=== PATIENT | male | born 1980 | race Caucasian/White ===

== ENCOUNTER 2017-11-11 23:21 | Emergency (ER) | payer OTHER ==
[~2017-11-11] VITALS: Ht 195.6 cm; Wt 86.2 kg
--- NOTE | 2017-11-11 23:27 | NUR ---
PT AMBULATORY TO ER BED 12. BIBSELF C/O LOWER BACK PAIN X 1 DAYS. 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 VSS/RESP EVEN UNLABORED/NAD NOTED/SKIN WARM AND DRY/AFEBRILE/DENIES N-V-D/AOX4. AWAITING MD MELISSA.
[2017-11-12] MEDS ORDERED: LIDOCAINE 2% JEL UROJET 10 ML MM ONE ×2 (00:20→00:30)
--- NOTE | 2017-11-12 00:25 | NUR ---
18G IV TO L AC X 1 ATTEMPT USING ASEPTIC TECH, BLOOD HANDED OVER TO LAB AT THE BEDSIDE. IV FLUSHES EASILY WITH NS, NO S/S INFILTRATION NOTED.
[2017-11-12] MEDS ORDERED: ONDANSETRON HCL/PF 4 MG/2 ML VIAL ONE (00:28)
[2017-11-12] MEDS ORDERED: HYDROMORPHONE INJ 2 MG/ML DISP.SYRIN ONE ×2 (00:29→03:20)
[2017-11-12] MEDS ORDERED: HYDROMORPHONE INJ 2 MG/ML DISP.SYRIN IV ONE (00:30)
[2017-11-12] MEDS ORDERED: ONDANSETRON HCL/PF 4 MG/2 ML VIAL IVP ONE (00:30)
[2017-11-12] MEDS ORDERED: IV NS 0.9% 500 ML BAG IV ONE (00:30)
--- NOTE | 2017-11-12 00:41 | NUR ---
SPOKE WITH CITLALI, MRI COORDINATOR , HE SAID THE SOONEST HE CAN GET A TECH IS 8AM, AND HE WILL CONTINUE TO CALL OTHER TECHS TO SEE IF THEY ARE AVAILABLE. CALL BACK NUMBER FOR CITLALI IS [phone]
[2017-11-12 00:44] LABS: CALCIUM, SERUM 9.3 mg/dL (8.5-10.1); CREATININE 1.1 mg/dL (0.6-1.3); POTASSIUM 3.6 mmol/L (3.5-5.1)
--- NOTE | 2017-11-12 00:49 | NUR ---
16 FR F/C INSERTED USING SOLAR PV INSTALLER, 600ML URINE OUTPUT NOTED. URINE SPECIMEN OBTAINED AND SENT TO THE LAB.
--- NOTE | 2017-11-12 00:57 | NUR ---
SPOKW WITH CITLALI, HE STATES THE DRIVER SUPERVISOR WILL BE HERE AT [id number]
[2017-11-12 01:06] LABS: HEMATOCRIT 42 % (39-51); HEMOGLOBIN 14.7 g/dL (13.5-17.5); MEAN CORPUSCULAR HGB CONC 35 g/dl (31.0-36.0); MEAN CORPUSCULAR VOLUME 92 fL (80-96); PLATELET COUNT (AUTO) 170 /CMM (150-450); RDW COEFFICIENT OF VARIATION 12.1 (11.5-15.0); RED BLOOD CELL COUNT(AUTO) 4.62 MIL/uL (4.5-6.0)
[2017-11-12 01:08] LABS: APPEARANCE,URINE CLEAR (CLEAR); BILIRUBIN,URINE NEGATIVE (NEGATIVE); BLOOD, URINE NEGATIVE Ery/uL (NEGATIVE); COLOR,URINE YELLOW (YELLOW); KETONES,URINE NEGATIVE (NEGATIVE); LEUKOCYTE ESTERASE ,URINE NEGATIVE (NEGATIVE); NITRITE, URINE NEGATIVE (NEGATIVE); PROTEIN,URINE NEGATIVE (NEGATIVE); UGLUCOSE NEGATIVE (NEGATIVE); UROBILINOGEN,URINE 0.2 EU/dL (0.2)
[2017-11-12 01:13] LABS: ALBUMIN 4.3 g/dL (3.4-5.0); BILIRUBIN,DIRECT 0.1 mg/dL (0.0-0.2); BILIRUBIN,TOTAL 0.6 mg/dL (0.2-1.0); TOTAL PROTEIN, SERUM 7.6 g/dL (6.4-8.2)
--- NOTE | 2017-11-12 01:32 | NUR ---
Sissy kennedy in [facility] - 11/12/17 at 0137 by NAY PT TO MRI
--- NOTE | 2017-11-12 01:36 | NUR ---
PT TO MRI VIA WC, VSS.
[2017-11-12 01:44] LABS: LYMPHOCYTES % (MANUAL) 43 % (16-48); MONOCYTES % (MANUAL) 18 % (0-11.0); NEUTROPHILS % (MANUAL) 39 (42-76)
--- NOTE | 2017-11-12 03:11 | NUR ---
PT BACK FROM MRI.
[2017-11-12] MEDS ORDERED: HYDROMORPHONE 1 MG/1 ML DISP.SYRIN IV ONE (03:30)
[2017-11-12] MEDS ORDERED: TAMSULOSIN 0.4 MG CAP.SR.24H ONE (04:18)
[2017-11-12] MEDS ORDERED: TAMSULOSIN 0.4 MG CAP.SR.24H PO ONE (04:30)
--- NOTE | 2017-11-12 04:58 | NUR ---
IV removed. Catheter intact and site benign. Pressure and 4x4 applied to site. No bleeding noted. Patient provided with leg bag for tran catheter and instructed on use, verbalizes understanding. Patient to follow-up with Urologist on Monday. Patient discharged to home in stable condition. Written and verbal after care instructions given, patient instructed not to drive. Patient verbalizes understanding of instruction. Patient is awake and alert to self, day, and place. Patient ambulatory with a steady gait.
[2017-11-12 05:02] VITALS: BP 110/64
== END 2017-11-12 05:03 | disposition home or self-care (01) ==
LOC: ER 23:23
DX: R33.9 Retention of urine, unspecified (principal); M54.5 Low back pain; Z60.2 Problems related to living alone
CPT/HCPCS: 36415; 51702; 72148; 80048; 80076; 81001; 83690; 85025; 85730; 96361; 96374; 96375; 96376; 99285; A4606 ×2; J1170 ×2; J2405; J3490; J7030; Z7610 ×2; 81000-TC